=== PATIENT | male | born 1970 | race Caucasian/White ===

== ENCOUNTER 2017-05-06 20:33 | Emergency (ER) | payer MEDICARE, MEDICAID ==
[2017-05-06 20:38] VITALS: BP 130/82
[2017-05-06] MEDS ORDERED: Tetan/Diph/Pertus SYR(Tdap)* 0.5 ML SYR(BOOSTRIX) use SYR IM ONE (21:45)
--- NOTE | 2017-05-06 21:46 | UC ---
Laceration HPI - HPI Summary HPI Summary: 46 y/o male presents to the urgent care c/o Rt hand laceration while cutting a piece of steal around 1945pm. Pt last tetanus shot was on 06/04/2013. Pt states bleeding stopped with pressure, pain is mild 2/10. Pt denies any tingling or numbness over the finger or hand. Pt can move hand w/o any difficulty. Pt denies fever, SOB, chest pain, N/V/D - History Of Current Complaint Chief Complaint: UCLaceration Stated Complaint: HAND LAC Time Seen by Provider: 05/06/17 21:38 Hx Obtained From: Patient Laceration Location: Hand - RT hand laceration Mechanism Of Injury: Sharp Trauma Onset/Duration: Sudden Onset - at 1945 Severity: Moderate Pain Intensity: 2 Pain Scale Used: 0-10 Numeric Aggravating Factors: Movement Related History: Dominant Hand Right - Allergies/Home Medications Allergies/Adverse Reactions: Allergies Allergy/AdvReac Type Severity Reaction Status Date / Time Warfarin [From Coumadin] Allergy Severe NECROSIS Verified 08/26/16 15:17 Home Medications: Home Medications Omeprazole [Prilosec] 20 mg PO 05/06/17 [History] PMH/Surg Hx/FS Hx/Imm Hx Previously Healthy: Yes Other Endocrine History: Rheumatoid arthritis - Surgical History Surgical History: Yes Surgery Procedure, Year, and Place: BILAT HAND SURGERY, LEFT LEG SURGERY. Bilat wrist surgery - Family History Known Family History: Positive: Cardiac Disease, Hypertension, Diabetes - Social History Occupation: Employed Full-time Lives: With Family Alcohol Use: None Substance Use Type: None Smoking Status (MU): Former Smoker When Did the Patient Quit Smoking/Using Tobacco: 20 YRS AGO - Immunization History Most Recent Tetanus Shot: UNSURE Review of Systems Constitutional: Negative Skin: Other - Rt hand laceration Eyes: Negative ENT: Negative Respiratory: Negative Cardiovascular: Negative Gastrointestinal: Negative Genitourinary: Negative Motor: Negative Neurovascular: Negative Musculoskeletal: Negative Neurological: Negative Psychological: Negative Is Patient Immunocompromised?: No All Other Systems Reviewed And Are Negative: Yes Physical Exam Triage Information Reviewed: Yes Appearance: Well-Appearing, No Pain Distress, Well-Nourished, Thin Vital Signs: Initial Vital Signs Temp 98.8 F 05/06/17 20:34 Pulse 64 05/06/17 20:34 Resp 18 09/09/17 20:34 BP 130/82 05/06/17 20:34 Pulse Ox 99 05/06/17 20:34 Vital Signs Reviewed: Yes Eye Exam: Normal Eyes: Positive: Conjunctiva Clear - PERRLA, EOMI ENT Exam: Normal ENT: Positive: Normal ENT inspection, Hearing grossly normal, Pharynx normal, TMs normal Neck exam: Normal Neck: Positive: Supple, Nontender, No Lymphadenopathy Respiratory Exam: Normal Respiratory: Positive: Chest non-tender, Lungs clear, Normal breath sounds Cardiovascular Exam: Normal Cardiovascular: Positive: RRR, No Murmur, Pulses Normal, Brisk Capillary Refill Abdominal Exam: Normal Abdomen Description: Positive: Nontender, No Organomegaly, Soft. Negative: CVA Tenderness (R), CVA Tenderness (L) Bowel Sounds: Positive: Present Musculoskeletal Exam: Normal Musculoskeletal: Positive: Strength Intact, ROM Intact, No Edema Neurological Exam: Normal Psychological Exam: Normal Skin: Positive: significant lesion(s) - Dorsal side of the Rt hand with a superficial linear laceration about 4cm in size. not blleding, tender to palaption, No FB obsersed. FROM of the fingers and hand, Positive ssensation, capillary refill brisk, Positive pulses WNL. Laceration Repair - Laceration Repair 1 Description: Linear - superficial Laceration Size After Repair: Length (cm) - 4cm Modified For Repair: No Type Injection: Local Anesthesia Used: 2.0% Lido - 5ml Cleansing Completed Via Routine Prep: Yes Irrigation With Pressure Irrigation Device: Yes Closure Material: Sutures - 12 sutures placed. Closure Method: Single Layer Suture Of: Skin Suture Type: Nylon Laceration Course/Dx - Course/Dx Course Of Treatment: 46 y/o male presents to the urgent care c/o Rt hand laceration while cutting a piece of steal around 1945pm. Pt last tetanus shot was on 06/04/2013. Pt states bleeding stopped with pressure, pain is mild 2/10. Pt denies any tingling or numbness over the finger or hand. Pt can move hand w/ o any difficulty. Pt denies fever, SOB, chest pain, N/V/D. Time out performed and all involved parties agreed to the PT, procedure and laterality. Copious irrigation was done with saline by the nurse and the wound explored. There was no FB or deep structure injury noted. FROM of left forearm. procedure was explained and consent obtained, Timeout performed. The wound was anesthetized with 4 mL of 2% lido/epi with good anesthesia. Sterile drape and prep were don. There were 12 sutures with 5.0 nylon type of suture. The length of the wound after closure was 4.0cm. No debridement done. Triple antibiotic applied on wound and sterile nonadherent dressing. The Pt tolerated the procedure well without adverse effects. Neurovascular intact and FROM. Pt advised to f/u suture removal in 10 days and if any signs of infection develop to immediately return to the urgent care of PCP for further management and treatment. Pt understood and agreed and left the clinic ambulating A&Ox3. - Differential Dx - Laceration/Wound Differental Diagnoses: Abrasion, Avulsion, Laceration, Puncture Wound, Tendon Laceration Provider Diagnoses: 1- RT hand laceration Discharge - Discharge Plan Condition: Stable Disposition: HOME Patient Education Materials: Care For Your Stitches (ED), Laceration (ED) Referrals: Red Green MD [Primary Care Provider] - 05/16/17 Additional Instructions: 1-Please take Meloxican you have at home for pain and swelling. 2- Keep wound clean and dry and avoid excessive movement w/ your finger. 3- F/u suture removal in 10 days w/ your PCP or here at the urgent care. 4- If you develop fever or redness around your finger despite the antibiotic please go to the ER immediately or return to the Urgent care.
[2017-05-06] MEDS ORDERED: Lidocaine 2% 10 ML* VIAL INJ ONE (21:57)
[2017-05-06] MEDS ORDERED: Lidocaine 2% PF * 5 ML VIAL INJ ONE (22:01)
[2017-05-06] MEDS ORDERED: Lidocaine 2% PF * 5 ML VIAL ONE (22:03)
== END 2017-05-06 22:55 | disposition home or self-care (01) ==
LOC: UCEAST 20:33
DX: S61.411A Laceration without foreign body of right hand, initial encounter (principal); W45.8XXA Other foreign body or object entering through skin, initial encounter; Y93.9 Activity, unspecified; Y92.9 Unspecified place or not applicable; M06.9 Rheumatoid arthritis, unspecified; Z88.8 Allergy status to other drugs, medicaments and biological substances; Z87.891 Personal history of nicotine dependence
CPT/HCPCS: 12002; 90715; 99211; G0463; J2001

== ENCOUNTER 2023-10-04 12:01 | Observation (INO) ==
[2023-10-04] MEDS: fentaNYL 100 mcg/2 ml 50 MCG/ML VIAL IV SLOW PU ONE ×4 (12:25→16:09)
[2023-10-04] MEDS ORDERED: fentaNYL 100 mcg/2 ml 50 MCG/ML VIAL ONE (12:42)
[2023-10-04 13:18] LABS: ABS Basophils 0.1 10^3/uL (0.0-0.1); ABS Eosinophils 0.1 10^3/uL (0.0-0.5); ABS Lymphocytes 0.9 10^3/uL (1.0-4.8); ABS Monocytes 0.8 10^3/uL (0.0-1.1); ABS Neutrophils 8.4 10^3/uL (1.5-7.6); ABS Nucleated RBC 0.01 10^3/ul; Eosinophil % 0.8 %; Hematocrit 43.1 % (38-53); Hemoglobin 14.8 g/dL (13.2-16.3); Lymphocyte % 8.8 %; Mean Corpuscular Hemoglobin 31.4 pg (27-33); Mean Corpuscular Hgb Conc 34.3 g/dL (31-36); Mean Corpuscular Volume 91.6 fL (80-97); Mean Platelet Volume 8.1 fL (7.5-11.2); Nucleated Red Blood Cells % 0.1 %/100WBC (0.0-0.8); Platelet Count 224 10^3/uL (150-450); Red Blood Count 4.71 10^6/uL (4.06-5.63); Red Cell Distribution Width 14.1 % (12-17); White Blood Count 10.2 10^3/uL (3.6-10.2)
[2023-10-04 13:33] LABS: INR 0.97 (0.83-1.13)
[2023-10-04 13:35] LABS: Albumin 4.4 g/dL (3.2-5.2); Albumin/Globulin Ratio 1.8 (1-3); Calcium 9.3 mg/dL (8.6-10.3); Creatinine, Serum 1.01 mg/dL (0.67-1.17); Globulin 2.4 g/dL (2-4); Potassium 4.2 mmol/L (3.5-5.0); Total Bilirubin 0.8 mg/dL (0.2-1.0); Total Protein 6.8 g/dL (6.4-8.9); eGFR CKD-EPI 87.8 (>60)
[2023-10-04] MEDS: NS 0.9% 1000 ml BAG 1,000 ML IV.FLUID IV ONE (14:25)
[2023-10-04] MEDS ORDERED: Magnesium Hydroxide LIQ 30 ML UDC PO PRN (16:44)
[2023-10-04] MEDS ORDERED: Ondansetron ODT 4 mg TAB 4 MG TAB PO PRN (16:44)
[2023-10-04] MEDS ORDERED: Ondansetron 4 mg VIAL 2 MG/ML 2 ml VIAL IV PRN (16:44)
[2023-10-04] MEDS ORDERED: Lactulose 30 ml UDC PO PRN (16:44)
[2023-10-04] MEDS: Morphine 2 MG/ML SYRINGE IV PRN (17:48)
[2023-10-04 20:14] LABS: Creatinine, Serum 1.01 mg/dL (0.67-1.17); eGFR CKD-EPI 87.8 (>60)
[2023-10-04] MEDS: Magnesium Hydroxide LIQ 30 ML UDC PO SCH (22:17)
[2023-10-04] MEDS: Heparin 5000 UNITS/ML 1 mL VIAL SUBCUT SCH (22:27)
[2023-10-05 05:59] LABS: Hematocrit 39.7 % (38-53); Hemoglobin 13.5 g/dL (13.2-16.3); Mean Platelet Volume 8.7 fL (7.5-11.2); Platelet Count 190 10^3/uL (150-450)
[2023-10-05 06:21] LABS: Calcium 8.7 mg/dL (8.6-10.3); Creatinine, Serum 1.03 mg/dL (0.67-1.17); Potassium 3.4 mmol/L (3.5-5.0); eGFR CKD-EPI 85.8 (>60)
[2023-10-05] MEDS: Morphine 2 MG/ML SYRINGE IV PRN (07:49)
[2023-10-05] MEDS: Vitamin THERAPEUTIC TAB PO SCH (11:53)
[2023-10-05] MEDS ORDERED: Midazolam 2 mg/2 ml VIAL 1 mg/ml 2 ml VIAL (2 mg) ONE (13:13)
[2023-10-05] MEDS ORDERED: Dexamethasone IV 4 MG/ML VIAL 1 ml VIAL ONE ×2 (13:14→14:53)
[2023-10-05] MEDS ORDERED: ROPIVACAINE 5 MG/ML 30 ML BTL (0.5%) ONE (13:14)
[2023-10-05] MEDS ORDERED: Ropivacaine 5 MG/ML 20 ML VIAL 0.5% (100 MG) ONE (13:15)
[2023-10-05] MEDS ORDERED: ceFAZolin 2 GM in NS PREMIX 2 GM/100 ML BAG IVPB ONE (13:20)
[2023-10-05] MEDS ORDERED: Propofol 10 MG/ML 20 ML BTL ONE (13:30)
[2023-10-05] MEDS ORDERED: Lidocaine 2% PF 5 ML VIAL ONE (13:30)
[2023-10-05] MEDS ORDERED: Midazolam 5 mg/5 ml VIAL 1 mg/ml 5 ml VIAL (5 mg) ONE (13:30)
[2023-10-05] MEDS ORDERED: fentaNYL 250 mcg/5 ml 50 MCG/ML 5 ml VIAL (250 MCG) ONE (13:30)
[2023-10-05] MEDS ORDERED: Sterile Water for Inj 10 ML ONE (14:46)
[2023-10-05] MEDS ORDERED: Ondansetron 4 mg VIAL 2 MG/ML 2 ml VIAL ONE (14:53)
[2023-10-05] MEDS ORDERED: Acetaminophen IV 1 GM/100ML 1,000 MG/100 ML BAG IV ONE (14:54)
[2023-10-05] MEDS ORDERED: Ondansetron 4 mg VIAL 2 MG/ML 2 ml VIAL IV PRN (15:15)
[2023-10-05] MEDS ORDERED: Naloxone 0.4 mg VIAL 0.4 mg/ml 1 ml VIAL IV PRN (15:15)
[2023-10-05] MEDS ORDERED: HYDROmorphone 1 MG/1 ML SYRINGE IV PRN (15:15)
[2023-10-05] MEDS ORDERED: fentaNYL 100 mcg/2 ml 50 MCG/ML VIAL IV PRN (15:15)
[2023-10-05 17:17] VITALS: BP 117/70
== END 2023-10-05 17:33 | disposition home or self-care (01) ==
LOC: ED 12:01 → EDHOLD 12:01 → SSU 20:38 → UNDODISOB 10-05 16:10
PROVIDERS: ADMIT Orthopaedic Surgery; ATTEND Orthopaedic Surgery